=== PATIENT | female | born 1975 | race Caucasian/White ===

== ENCOUNTER 2024-07-22 17:59 | Emergency (ER) | payer OTHER, SELFPAY ==
--- NOTE | ~2024-07-22 | CT_ITS ---
CLINICAL HISTORY: left flank pain CT abdomen and pelvis without contrast Comparison: None Findings: No consolidation or effusion. Small focus of inflammatory changes centered on a epiploic fat lobule inferior to the sigmoid colon and overlying urinary bladder. Otherwise normal appearance of the colon. Stomach, small bowel, and appendix unremarkable. Mild hepatic steatosis. Otherwise normal liver and solid organs. Gallbladder and bile ducts normal. No abdominal aortic aneurysm. No acute fracture. IMPRESSION: Epiploic appendagitis in the distal sigmoid region. This document has been electronically signed by: Bernardino Vargas MD on 07/23/2024 00:40:48
[2024-07-22 18:08] VITALS: BP 139/61; PULSE 76; RESP 18; TEMP 36.8; O2SAT 99; BMI 34.3
--- NOTE | 2024-07-22 18:13 | ED.GENADULT ---
HPI - General Adult General Chief complaint: Abdominal Pain Stated complaint: ? kidney stone Time Seen by Provider: 07/22/24 22:13 Source: patient Limitations: no limitations History of Present Illness ED Provider: Gladys Chong PA-C HPI narrative: 48-year-old female with a history of morbid obesity presents with left flank pain since earlier today. Pain over left flank that radiates to left lower quadrant. Patient unable to describe the nature of her discomfort. Denies dysuria, hematuria, history kidney stones, nausea vomiting, constipation or diarrhea. Denies mechanism of injury where she could have strained her abdominal wall. Related Data Previous Rx's ?Medication ?Instructions ?Recorded ketorolac 10 mg tablet 10 mg PO Q6H PRN pain #20 tabs 07/23/24 Allergies Allergy/AdvReac Type Severity Reaction Status Date / Time Penicillins [PCN] Allergy Itching Verified 07/22/24 18:11 Review of Systems Review of Systems: Yes all other systems are reviewed and are negative Constitutional: Constitutional: Denies fatigue and Denies fever(s) Cardiovascular: Cardiovascular: Denies chest pain and Denies dyspnea Respiratory: Respiratory: Denies cough and Denies dyspnea Gastrointestinal: Gastrointestinal: Reports abdominal pain, Denies constipation, Denies diarrhea, Denies nausea and Denies vomiting Genitourinary: Genitourinary: Denies hematuria, Denies dysuria and Reports flank pain Musculoskeletal: Musculoskeletal: Denies back pain Endocrine: Endocrine: Denies fatigue [facility] Past Medical History Attestation statement: The following information was validated with the patient. Social History Social History Advance Directives: No Advance Directives Information Provided: Yes Physical Exam ED Vital Signs: Vital Signs - 24 hr 07/22/24 18:08 07/22/24 21:00 Temperature 98.3 F 98.6 F Pulse Rate 76 70 Respiratory Rate 18 16 Blood Pressure 139/61 117/85 Pulse Oximetry 99 99 Oxygen Delivery Method Room Air Room Air BMI result Body Mass Index 34.3 Const Other: Alert well-appearing Orientation/consciousness: patient oriented x3 Resp Effort & Inspection: normal respiratory effort Cardio Other: Normal peripheral perfusion GI Other: Abdomen is soft, obese, nondistended, moderate tenderness across left lower quadrant and suprapubic region without guarding Back/Spine/Pelvis Other: No CVA tenderness Skin Other: Warm dry no rash Neuro General: patient oriented x3, gait normal, no focal motor deficits and CN's II-XI intact bilaterally Psych Other: Cooperative Course Course Course Narrative: RME, this is a rapid medical exam performed by Omid Rosas please refer to primary provider for complete H&P- 48-year-old female presents for evaluation of left lower abdominal pain. No nausea vomiting, diarrhea. Plan for labs and urinalysis Medications Administered Discontinued Medications Generic Name Dose Route Start Last Admin Trade Name Freq PRN Reason Stop Dose Admin Ketorolac Tromethamine 15 mg 07/22/24 23:57 07/23/24 00:05 Ketorolac Tromethamine 15 Mg/Ml Vial IM 07/22/24 23:58 15 mg ONCE ONE Administration Medical Decision Making Medical Decision Making [facility] Narrative: 48-year-old female with a history of morbid obesity presents with left flank pain since earlier today. Pain over left flank that radiates to left lower quadrant. Patient unable to describe the nature of her discomfort. Denies dysuria, hematuria, history kidney stones, nausea vomiting or diarrhea. Denies mechanism of injury where she could have strained her abdominal wall. Problem: Obesity History: Per patient I have considered the following differential diagnoses: Renal colic, UTI, pyelonephritis, abdominal wall strain, diverticulitis Plan: Given the distribution of discomfort I am considering renal colic, screening labs and a urinalysis were obtained from triage, she is passing a small amount of hematuria. We will obtain a CT scan and give Toradol. Thought about diverticulitis given distribution, however she has no active GI symptoms. Thought about pyelonephritis, however there was no CVA tenderness, she has no dysuria, urine not infected no fever. She has no mechanism of injury that could have caused her abdominal discomfort. I have independently reviewed the following tests: Labs: No leukocytosis, not anemic, no electrolyte abnormality, not , urine not infected but passing small amount of hematuria CT abdomen and pelvis:Findings: No consolidation or effusion. Small focus of inflammatory changes centered on a epiploic fat lobule inferior to the sigmoid colon and overlying urinary bladder. Otherwise normal appearance of the colon. Stomach, small bowel, and appendix unremarkable. Mild hepatic steatosis. Otherwise normal liver and solid organs. Gallbladder and bile ducts normal. No abdominal aortic aneurysm. No acute fracture. IMPRESSION: Epiploic appendagitis in the distal sigmoid region. This document has been electronically signed by: Bernardino Vargas MD on 07/23/2024 00:40:48 Lab Data 07/22/24 18:45 07/22/24 18:45 Labs: Lab Results 07/22/24 07/22/24 Range/Units 18:45 18:46 WBC 10.2 (4.8-10.8) X10*3/uL RBC 4.45 (4.20-5.50) X10*6/uL Hgb 13.4 (12.0-16.0) g/dl Hct 40.1 (37.0-47.0) % MCV 90.1 (80.0-98.0) fL MCH 30.1 (27.0-33.0) pg MCHC 33.4 (31.0-35.0) g/dl RDW 13.2 (11.0-16.0) % Plt Count 266 (160-400) X10*3/uL MPV 10.6 (9.4-12.3) fL Immature Gran % (Auto) 0.4 (0.0-0.4) % Neut % (Auto) 72.4 (45-73) % Lymph % (Auto) 21.6 (20-40) % [place] % (Auto) 3.9 (2-11) % Eos % (Auto) 1.2 (0-4) % Baso % (Auto) 0.5 (0-2) % Lymph # (Auto) 2.2 (1.2-4.9) X10*3/uL [place] # (Auto) 0.4 (0.1-1.2) X10*3/uL Eos # (Auto) 0.1 (0.0-0.4) X10*3/uL Baso # (Auto) 0.1 (0.0-0.2) X10*3/uL Abs Immat Gran (auto) 0.04 H (0.00-0.03) X10*3/uL Absolute Neuts (auto) 7.4 (2.0-8.3) x10*3/uL Absolute Nucleated RBC 0.000 (0.0-0.012) X10*3/uL Nucleated RBC % (auto) 0.0 (0.0-0.2) /100WBC Sodium 140 (135-145) mmol/L Potassium 3.4 (3.3-5.1) mmol/L Chloride 106 (96-108) mmol/L Carbon Dioxide 25 (22-29) mmol/L Anion Gap 12 (12-20) BUN 14 (9-16) mg/dL Creatinine 0.78 (0.5-1.4) mg/dL Estim Creat Clear Calc 86.7 Estimated GFR > 60 Random Glucose 123 H (60-115) mg/dL Calcium 9.8 (8.4-10.2) mg/dL Total Bilirubin 0.4 (0.0-1.0) mg/dL AST 57 H (5-31) U/L ALT 57 H (0-31) U/L Alkaline Phosphatase 87 (39-117) U/L Total Protein 7.6 (6.5-8.0) g/dL Albumin 4.0 (3.5-5.0) g/dL Lipase 41 (8-78) U/L Beta HCG, Quant < 2 mIU/mL Urine Color Yellow Urine Appearance Clear Urine pH 6.0 (5.0-9.0) Ur Specific [place] 1.015 (1.005-1.025) Urine Protein Negative (Neg-Trace) mg/dL Urine Glucose (UA) Negative (Negative) mg/dL Urine Ketones Negative (Negative) mg/dL Urine Blood Small (1+) H (Negative) Urine Nitrite Negative (Negative) Ur Leukocyte Esterase Negative (Negative) Urine RBC 6-10 H (0-2) /HPF Urine WBC 0-5 (0-5) /HPF Ur Squamous Epith Cells 0-2 (0-2) /HPF Urine Bacteria None Seen (None Seen) Hyaline Casts 0-2 (0-2) /LPF Discharge Plan Discharge Clinical Impression: Abdominal pain, Epiploic appendagitis Patient Disposition: Home, Self-Care Instructions: Abdominal Pain (ED) Additional Instructions: All of your screening labs were normal. On the CT scan, you were found to have a part of your intra-abdominal lining that is inflamed. This is self-limiting, you can take the ketorolac as needed for your discomfort, this is an anti-inflammatory. Follow up with your primary care provider as needed. Prescriptions: New ketorolac 10 mg tablet 10 mg PO Q6H PRN (Reason: pain) Qty: 20 0RF Rx Instructions: maximum total duration of 5 days from all oral, intranasal, or parenteral formulations, the patient received an intramuscular dose of Toradol here in the emergency department. Print Language: Telugu
[2024-07-22 19:04] LABS: MANUAL DIFF FLAG NO
[2024-07-22 19:10] LABS: Appearance Urine Clear; Color Urine Yellow; Glucose Urine UA Negative (Negative); Leukocyte Esterase Urine Negative (Negative); Nitrite Urine Negative (Negative); Specific Gravity - Urine 1.015 (1.005-1.025); UMIC TRIGGER UACC YES; Urine Blood Small (1+) (Negative); Urine Ketones Negative (Negative); Urine Protein Negative (Neg-Trace)
[2024-07-22 19:10] LABS: Basophils Absolute Auto 0.1 X10*3/uL (0.0-0.2); Basophils Percent Auto 0.5 % (0-2); Eosinophils Absolute Auto 0.1 X10*3/uL (0.0-0.4); Eosinophils Percent Auto 1.2 % (0-4); Hematocrit 40.1 % (37.0-47.0); Hemoglobin 13.4 g/dl (12.0-16.0); Imm Gran Abs Auto 0.04 X10*3/uL (0.00-0.03); Imm Gran Pct Auto 0.4 % (0.0-0.4); Lymphocytes Absolute Auto 2.2 X10*3/uL (1.2-4.9); Lymphocytes Percent Auto 21.6 % (20-40); Mean Corpuscular HGB Conc 33.4 g/dl (31.0-35.0); Mean Corpuscular Hemoglobin 30.1 pg (27.0-33.0); Mean Corpuscular Volume 90.1 fL (80.0-98.0); Mean Platelet Volume 10.6 fL (9.4-12.3); Monocytes Absolute Auto 0.4 X10*3/uL (0.1-1.2); Monocytes Percent Auto 3.9 % (2-11); Neutrophils Absolute Auto 7.4 x10*3/uL (2.0-8.3); Neutrophils Percent Auto 72.4 % (45-73); Platelet Count 266 X10*3/uL (160-400); Red Blood Count 4.45 X10*6/uL (4.20-5.50); Red Cell Distribution Width 13.2 % (11.0-16.0); White Blood Count 10.2 X10*3/uL (4.8-10.8)
[2024-07-22 19:13] LABS: Bacteria Urine None Seen (None Seen); Hyaline Casts Urine 0-2 /LPF (0-2); Squamous Epithelial Cell Urine 0-2 /HPF (0-2); WBC Urine 0-5 /HPF (0-5)
[2024-07-22 19:37] LABS: Alanine Aminotransferase 57 U/L (0-31); Alkaline Phosphatase 87 U/L (39-117); Aspartate Amino Transferase 57 U/L (5-31); Bilirubin Total 0.4 mg/dL (0.0-1.0); Blood Urea Nitrogen 14 mg/dL (9-16); Calcium 9.8 mg/dL (8.4-10.2); Carbon Dioxide 25 mmol/L (22-29); Creatinine Clr Calc Pharmacy 86.7; Estimated Glomerular Filt Rate > 60; Glucose Random 123 mg/dL (60-115); HCG Quantitative < 2 mIU/mL; Lipase 41 U/L (8-78); Total Protein 7.6 g/dL (6.5-8.0)
[2024-07-22 19:46] LABS: Anion Gap 12 (12-20); Chloride 106 mmol/L (96-108); Potassium 3.4 mmol/L (3.3-5.1); Sodium 140 mmol/L (135-145)
[2024-07-22 21:00] VITALS: BP 117/85; PULSE 70; RESP 16; TEMP 37; O2SAT 99
[2024-07-23] MEDS: Ketorolac Tromethamine 15 MG/ML VIAL IM (00:05)
[2024-07-23 01:49] VITALS: BP 145/61; PULSE 65; RESP 18; TEMP 36.8; O2SAT 100
--- NOTE | 2024-07-23 02:04 | PC.NURSE ---
Took over care from WILLA mendoza at 00:54am, reviewed discharge instructions with pt. pt verbalized understanding, no sign of distress.
[2024-07-23 02:05] VITALS: BP 145/61; PULSE 65; RESP 18; TEMP 36.8; O2SAT 100
== END 2024-07-23 02:06 | disposition home or self-care (01) ==
PROVIDERS: Physician Assistant; Emergency Provider Emergency Medicine; PCP Internal Medicine
DX: R10.32 Left lower quadrant pain (principal); K63.89 Other specified diseases of intestine; R31.9 Hematuria, unspecified; E66.9 Obesity, unspecified; Z68.34 Body mass index [BMI] 34.0-34.9, adult
CPT/HCPCS: 36415; 74176; 80053; 81001; 83690; 84702; 85025; 96372; 99284; J1885

== ENCOUNTER → 2024-07-23 | Outpatient (BNV) | payer OTHER, SELFPAY | PROVIDERS: Emergency Provider Emergency Medicine; PCP Internal Medicine; Visit Provider Radiology Diagnostic Radiology | DX: K65.9 Peritonitis, unspecified (principal) | CPT/HCPCS: 74176 ==